=== PATIENT | female | born 1970 | race Caucasian/White ===

== ENCOUNTER 2022-07-06 10:56 | Emergency (ER) | payer OTHER ==
[~2022-07-06] VITALS: Ht 165.1 cm; Wt 72.0 kg
[2022-07-06] MEDS ORDERED: ONDANSETRON ODT 4 MG TAB PO ONE (13:30)
[2022-07-06] MEDS ORDERED: KETOROLAC TROMETH 30 MG/ML 1ML VIAL IM ONE (13:30)
[2022-07-06] MEDS ORDERED: HYDROcodone-ACET 5/325MG TAB PO ONE (13:30)
[2022-07-06] MEDS ORDERED: HYDR1TAB97 PO (13:33)
[2022-07-06 13:55] VITALS: BP 121/59
== END 2022-07-06 13:56 | disposition home or self-care (01) ==
LOC: ER 11:04
DX: S22.41XA Multiple fractures of ribs, right side, initial encounter for closed fracture (principal); W18.39XA Other fall on same level, initial encounter; Y93.89 Activity, other specified; Y92.89 Other specified places as the place of occurrence of the external cause; Y99.8 Other external cause status
CPT/HCPCS: 71101; 99283; Q0162